=== PATIENT | male | born 1945 | race Caucasian/White ===

== ENCOUNTER 2018-12-10 10:35 | Observation (INO) | payer OTHER, MEDICARE ==
[~2018-12-10] VITALS: Ht 170.2 cm; Wt 72.0 kg
[~2018-12-10 10:35] MED LIST: ASPI-1071 PO; ATOR10TA87 PO; COL100C PO; DICL100G15 TOP; HYDR-3972 PO; LISI-604 PO; METF500T PO; METO25TA6 PO; PANT40TA4 PO; TEST75GE TOP; tamsulosin capsule PO
[2018-12-10 11:09] LABS: BASOPHILS # (AUTO) 0.1 X10'3 (0-0.2); BASOPHILS % (AUTO) 0.7 % (0-1); EOSINOPHILS # (AUTO) 0.3 X10'3 (0-0.9); EOSINOPHILS % (AUTO) 3.3 % (0-6); HEMATOCRIT 32.6 % (42.0-52.0); HEMOGLOBIN 10.8 g/dl (14.0-17.9); LYMPHOCYTES # (AUTO) 1.7 X10'3 (1.1-4.8); LYMPHOCYTES % (AUTO) 18.4 % (21-51); MEAN CORPUSCULAR HEMOGLOBIN 29.8 PG (27.0-31.0); MEAN CORPUSCULAR HGB CONC 33.2 g/dL (33.0-36.5); MEAN CORPUSCULAR VOLUME 89.7 FL (78-98); MEAN PLATELET VOLUME 7.5 FL (7.4-10.4); MONOCYTES # (AUTO) 0.5 X10'3 (0-0.9); MONOCYTES % (AUTO) 5.3 % (2-12); NEUTROPHILS # (AUTO) 6.6 X10'3 (1.8-7.7); NEUTROPHILS % (AUTO) 72.3 % (42-75); PLATELET COUNT 387 X10'3 (140-440); RED BLOOD COUNT 3.64 X10'6 (4.70-6.10); RED CELL DISTRIBUTION WIDTH 14.1 % (11.5-14.5); WHITE BLOOD COUNT 9.1 X10'3 (4.5-11.0)
[2018-12-10 11:20] LABS: PARTIAL THROMBOPLASTIN TIME 26 SECONDS (22-32)
[2018-12-10 11:22] LABS: ALANINE AMINOTRANSFERASE 28 U/L (12-78); ALBUMIN 2.9 G/DL (3.4-5.0); ALBUMIN/GLOBULIN RATIO 0.8 (1.1-1.5); ALKALINE PHOSPHATASE 57 IU/L (46-116); ANION GAP 10 (8-16); ASPARTATE AMINO TRANSFERASE 13 U/L (10-37); BILIRUBIN,TOTAL 0.5 MG/DL (0.1-1.0); BLOOD UREA NITROGEN 24 MG/DL (7-18); BUN/CREATININE RATIO 15.3 (5.4-32.0); CALCIUM 8.9 MG/DL (8.5-10.1); CHLORIDE 104 MMOL/L (99-107); CREATININE 1.57 MG/DL (0.60-1.10); GLUCOSE 161 MG/DL (70-104); POTASSIUM 4.3 MMOL/L (3.5-5.1); SODIUM 140 MMOL/L (135-145); TOTAL CARBON DIOXIDE 26.2 MMOL/L (24-32); TOTAL PROTEIN 6.5 G/DL (6.4-8.2); eGFR 44 ML/MIN
[2018-12-10] MEDS ORDERED: metFORMIN 500mg tablet PO ONE (11:55)
[2018-12-10] MEDS ORDERED: metFORMIN 850mg tablet PO ONE (12:20)
--- NOTE | 2018-12-10 12:36 | NUR ---
NOREEN CAMPBELL STATES PT MAY BE ADMITTED STILL CONSULTING WITH NETTIE HURTADO FOR PT TO EAT, ORDERED HEART HEALTHY DIET
[2018-12-10] MEDS ORDERED: UBID100C16 PO (12:46)
[2018-12-10] MEDS ORDERED: HYDR-4353 PO (12:51)
[2018-12-10] MEDS ORDERED: DOCU-20 PO (12:51)
[2018-12-10] MEDS ORDERED: METO25TA6 PO (12:51)
[2018-12-10] MEDS ORDERED: ASPI81TA52 PO (12:51)
[2018-12-10] MEDS ORDERED: FLO0.4C PO (12:51)
[2018-12-10] MEDS ORDERED: magnesium hydroxide 30ml (MOM) UD suspension PO PRN (12:55)
[2018-12-10] MEDS ORDERED: acetaminophen 325mg tablet PO PRN (12:55)
[2018-12-10] MEDS ORDERED: mag hydrox/Alum hydrox/simeth 30ml oral suspension PO PRN (12:55)
[2018-12-10] MEDS ORDERED: ondansetron/PF 4mg/2ml inj IV PRN (12:55)
[2018-12-10] MEDS ORDERED: METF750T46 PO (13:11)
[2018-12-10] MEDS ORDERED: HYDROcodone/acetaminophen 10/325mg tab PO PRN (14:00)
[2018-12-10] MEDS ORDERED: DICLOFENAC SODIUM 4 GM TOP SCH (14:00)
--- NOTE | 2018-12-10 14:00 | NUR ---
received report from TENA Marroquin. all questions answered.
--- NOTE | 2018-12-10 14:15 | NUR ---
pt arrived via gurney. ambulated to chair with a steady gait. pt attached to cardiac monitoring. vss. pt oriented to room and call light.
[2018-12-10] MEDS: normal saline 1000ml 1,000 ML IV SCH (14:39)
[2018-12-10 15:00] VITALS: BP 134/65
[2018-12-10] MEDS: metFORMIN 500mg tablet PO SCH (17:18)
--- NOTE | 2018-12-10 17:55 | NUR ---
[place] documentation: I have reviewed and agree with interventions, assessments performed and documented by Veronica MADSEN. [place] Medication Administration: For this medication-pass time frame, all medication were reviewed, dispensed, administered and documented per hospital policy by Veronica MADSEN.
[2018-12-10 18:00] VITALS: BP 111/66
--- NOTE | 2018-12-10 18:00 | NUR ---
Patient in room MED 308. I have received report from [facility] and had the opportunity to ask questions and assume patient care.
--- NOTE | 2018-12-10 18:14 | NUR ---
Problems reprioritized. Patient report given, questions answered & plan of care reviewed with Mik MADSEN.
[2018-12-10 20:00] VITALS: BP 111/66
[2018-12-10] MEDS ORDERED: TESTOSTERONE PUMP TOP SCH (20:00)
[2018-12-10] MEDS: TESTOSTERONE TP SCH (20:00)
[2018-12-10] MEDS: DICLOFENAC TP SCH (20:00)
[2018-12-10] MEDS ORDERED: tamsulosin 0.4mg capsule PO SCH (21:00)
[2018-12-10] MEDS ORDERED: METFORMIN HCL PO SCH (21:00)
[2018-12-10 22:00] VITALS: BP 105/57
[2018-12-10] MEDS: docusate sod 100mg capsule PO SCH (22:35)
--- NOTE | 2018-12-10 22:42 | NUR ---
PAGER ID: [phone] MESSAGE: [id number] changes in his ECG. Stat 12-lead in process, c/o CP but no Nitro ordered, BP currently 155/80. Please come to floor. Thank you. Addendum: 12/11/18 at 0040 by Babs Felton RN Per MD, changes are due to BBB. Stat trop ordered and Nitro to be given only if trop is elevated and chest pain is present. Also, repeat ECG when no chest pain is present. Trop was negative and patient denies chest pain. A repeat ECG shows no BBB or ST abnormalities.
[2018-12-10] MEDS: heparin, porcine 5000 units/ml vial SQ SCH (22:43)
[2018-12-11] MEDS: metoprolol tartrate 12.5mg (1/2 tablet) PO SCH ×2 (00:42→07:59)
[2018-12-11] MEDS: normal saline 1000ml 1,000 ML IV SCH ×2 (00:43→08:54)
[2018-12-11 02:00] VITALS: BP 134/74
[2018-12-11] MEDS: DICLOFENAC TP SCH ×2 (02:00→08:00)
[2018-12-11 05:30] LABS: ALBUMIN 2.7 G/DL (3.4-5.0); ANION GAP 9 (8-16); BLOOD UREA NITROGEN 23 MG/DL (7-18); BUN/CREATININE RATIO 17.6 (5.4-32.0); CALCIUM 8.5 MG/DL (8.5-10.1); CHLORIDE 105 MMOL/L (99-107); CREATININE 1.31 MG/DL (0.60-1.10); GLUCOSE 128 MG/DL (70-104); POTASSIUM 4.1 MMOL/L (3.5-5.1); SODIUM 139 MMOL/L (135-145); TOTAL CARBON DIOXIDE 24.8 MMOL/L (24-32); eGFR 54 ML/MIN
[2018-12-11 05:40] LABS: BASOPHILS # (AUTO) 0.1 X10'3 (0-0.2); BASOPHILS % (AUTO) 0.8 % (0-1); EOSINOPHILS # (AUTO) 0.3 X10'3 (0-0.9); EOSINOPHILS % (AUTO) 3.2 % (0-6); HEMATOCRIT 28.2 % (42.0-52.0); HEMOGLOBIN 9.6 g/dl (14.0-17.9); LYMPHOCYTES # (AUTO) 1.9 X10'3 (1.1-4.8); LYMPHOCYTES % (AUTO) 19.7 % (21-51); MEAN CORPUSCULAR HEMOGLOBIN 30.6 PG (27.0-31.0); MEAN PLATELET VOLUME 7.7 FL (7.4-10.4); MONOCYTES # (AUTO) 0.5 X10'3 (0-0.9); NEUTROPHILS % (AUTO) 71.3 % (42-75); PLATELET COUNT 349 X10'3 (140-440); RED BLOOD COUNT 3.14 X10'6 (4.70-6.10); RED CELL DISTRIBUTION WIDTH 13.8 % (11.5-14.5); WHITE BLOOD COUNT 9.8 X10'3 (4.5-11.0)
[2018-12-11 06:00] VITALS: BP 114/54
--- NOTE | 2018-12-11 06:44 | NUR ---
Report given to Capri MADSEN.
[2018-12-11] MEDS ORDERED: atorvastatin 10mg tablet PO SCH (08:00)
[2018-12-11] MEDS: metFORMIN 500mg tablet PO SCH (08:00)
[2018-12-11] MEDS ORDERED: lisinopril 5mg tablet PO SCH (08:00)
[2018-12-11] MEDS ORDERED: aspirin 81mg tablet.DR PO SCH (08:00)
[2018-12-11] MEDS ORDERED: pantoprazole 40mg Tablet.DR PO SCH (08:00)
[2018-12-11] MEDS ORDERED: nitroGLYCERIN 0.4mg/hour patch TD SCH (08:00)
[2018-12-11] MEDS: docusate sod 100mg capsule PO SCH (08:00)
[2018-12-11] MEDS: TESTOSTERONE TP SCH (08:00)
[2018-12-11] MEDS ORDERED: COENZYME Q10 300 MG PO SCH (08:00)
[2018-12-11] MEDS ORDERED: non-formulary drug (Ubidecarenone (Coq-10) 300 MG) PO SCH (08:00)
[2018-12-11] MEDS: heparin, porcine 5000 units/ml vial SQ SCH (08:01)
[2018-12-11 11:00] VITALS: BP 126/66
--- NOTE | 2018-12-11 11:30 | NUR ---
PROVIDED PATIENT WITH DISCHARGE INSTRUCTIONS WELL PACKET. PATIENT IS AWARE OF FOLLOW UP APPOINTMENTS NEXT WEEK. IV REMOVED, CATHETER INTACT, MINIMAL BLEEDING CLEAN GAUZE APPLIED AND SECURED WITH TAPE. PATIENT GOT HIMSELF DRESSED, AND HIS ARRIVED TO TAKE HIM HOME VIA PRIVATE VEHICLE. PATIENT AND FAMILY DENIES ANY QUESTIONS OR CONCERNS.
== END 2018-12-11 12:00 | disposition home or self-care (01) ==
LOC: ER 10:36 → MED 3N 14:15
PROVIDERS: ADMIT Family Medicine; ATTEND Family Medicine
DX: R07.9 Chest pain, unspecified (principal); R55 Syncope and collapse; I12.9 Hypertensive chronic kidney disease with stage 1 through stage 4 chronic kidney disease, or unspecified chronic kidney disease; E11.22 Type 2 diabetes mellitus with diabetic chronic kidney disease; N18.9 Chronic kidney disease, unspecified; I25.119 Atherosclerotic heart disease of native coronary artery with unspecified angina pectoris; E78.5 Hyperlipidemia, unspecified; Z95.1 Presence of aortocoronary bypass graft; Z79.82 Long term (current) use of aspirin
CPT/HCPCS: 36415; 71045; 80048; 80053; 84484; 85025; 85610; 85730; 87081; 93005; 96360; 96361; 96372; 99284; G0378; J1644; J7030

== ENCOUNTER 2019-06-24 09:25 | Day surgery (SDC) | payer BC, MEDICARE ==
[~2019-06-24 09:25] MED LIST changes: +AMOX-422 PO; -ASPI-1071 PO; +ASPI81TA52 PO; -COL100C PO; -DICL100G15 TOP; -HYDR-3972 PO; +HYDR-4353 PO; -METF500T PO; +METF750T46 PO; +METO-395 PO; -METO25TA6 PO; -PANT40TA4 PO; +UBID100C16 PO; -tamsulosin capsule PO
[2019-06-24] MEDS ORDERED: LIDOcaine 2% 5ml jelly ONE ×2 (10:01)
[2019-06-24] MEDS ORDERED: LIDOcaine 1%/PF 5ML 10 MG/ML VIAL ONE (10:31)
== END 2019-06-24 12:03 | disposition home or self-care (01) ==
LOC: WOUND CARE 09:25
PROVIDERS: ATTEND Surgery
DX: E11.621 Type 2 diabetes mellitus with foot ulcer (principal); L97.512 Non-pressure chronic ulcer of other part of right foot with fat layer exposed; L97.522 Non-pressure chronic ulcer of other part of left foot with fat layer exposed; E11.65 Type 2 diabetes mellitus with hyperglycemia; E11.40 Type 2 diabetes mellitus with diabetic neuropathy, unspecified; E11.22 Type 2 diabetes mellitus with diabetic chronic kidney disease; I13.0 Hypertensive heart and chronic kidney disease with heart failure and stage 1 through stage 4 chronic kidney disease, or unspecified chronic kidney disease; I50.22 Chronic systolic (congestive) heart failure; N18.3 Chronic kidney disease, stage 3 (moderate); I25.2 Old myocardial infarction; I25.10 Atherosclerotic heart disease of native coronary artery without angina pectoris; K21.9 Gastro-esophageal reflux disease without esophagitis; Z85.828 Personal history of other malignant neoplasm of skin; Z79.82 Long term (current) use of aspirin; Z79.84 Long term (current) use of oral hypoglycemic drugs; Z79.899 Other long term (current) drug therapy; Z95.1 Presence of aortocoronary bypass graft; Z96.653 Presence of artificial knee joint, bilateral
CPT/HCPCS: 10060; 36416; 82948; 97597; 97605

== ENCOUNTER 2019-07-01 08:00 | Day surgery (SDC) | payer BC, MEDICARE ==
[2019-07-01] MEDS ORDERED: LIDOcaine 2% 5ml jelly ONE (09:16)
== END 2019-07-01 10:28 | disposition home or self-care (01) ==
LOC: WOUND CARE 08:00
PROVIDERS: ATTEND Surgery
DX: E11.621 Type 2 diabetes mellitus with foot ulcer (principal); L97.512 Non-pressure chronic ulcer of other part of right foot with fat layer exposed; L97.522 Non-pressure chronic ulcer of other part of left foot with fat layer exposed; E11.65 Type 2 diabetes mellitus with hyperglycemia; E11.40 Type 2 diabetes mellitus with diabetic neuropathy, unspecified; E11.22 Type 2 diabetes mellitus with diabetic chronic kidney disease; I13.0 Hypertensive heart and chronic kidney disease with heart failure and stage 1 through stage 4 chronic kidney disease, or unspecified chronic kidney disease; I50.22 Chronic systolic (congestive) heart failure; N18.3 Chronic kidney disease, stage 3 (moderate); I25.2 Old myocardial infarction; I25.10 Atherosclerotic heart disease of native coronary artery without angina pectoris; K21.9 Gastro-esophageal reflux disease without esophagitis; Z85.828 Personal history of other malignant neoplasm of skin; Z79.82 Long term (current) use of aspirin; Z79.84 Long term (current) use of oral hypoglycemic drugs; Z79.899 Other long term (current) drug therapy; Z95.1 Presence of aortocoronary bypass graft; Z96.653 Presence of artificial knee joint, bilateral
CPT/HCPCS: 36416; 82948

== ENCOUNTER 2019-07-06 08:57 | Day surgery (SDC) | payer BC, MEDICARE ==
[2019-07-06] MEDS ORDERED: LIDOcaine 2% 5ml jelly ONE (09:50)
== END 2019-07-06 10:57 | disposition home or self-care (01) ==
LOC: WOUND CARE 08:57
PROVIDERS: ATTEND Surgery
DX: E11.621 Type 2 diabetes mellitus with foot ulcer (principal); L97.512 Non-pressure chronic ulcer of other part of right foot with fat layer exposed; L97.522 Non-pressure chronic ulcer of other part of left foot with fat layer exposed; T63.301D Toxic effect of unspecified spider venom, accidental (unintentional), subsequent encounter; E11.65 Type 2 diabetes mellitus with hyperglycemia; E11.40 Type 2 diabetes mellitus with diabetic neuropathy, unspecified; E11.22 Type 2 diabetes mellitus with diabetic chronic kidney disease; I13.0 Hypertensive heart and chronic kidney disease with heart failure and stage 1 through stage 4 chronic kidney disease, or unspecified chronic kidney disease; I50.22 Chronic systolic (congestive) heart failure; N18.3 Chronic kidney disease, stage 3 (moderate); I25.2 Old myocardial infarction; I25.10 Atherosclerotic heart disease of native coronary artery without angina pectoris; K21.9 Gastro-esophageal reflux disease without esophagitis; Z85.828 Personal history of other malignant neoplasm of skin; Z79.82 Long term (current) use of aspirin; Z79.84 Long term (current) use of oral hypoglycemic drugs; Z79.899 Other long term (current) drug therapy; Z95.1 Presence of aortocoronary bypass graft; Z96.653 Presence of artificial knee joint, bilateral
CPT/HCPCS: 11042; 36416; 82948; 97597

== ENCOUNTER 2019-07-13 09:00 | Day surgery (SDC) | payer BC, MEDICARE ==
[2019-07-13] MEDS ORDERED: LIDOcaine 2% 5ml jelly ONE (09:33)
== END 2019-07-13 10:30 | disposition home or self-care (01) ==
LOC: WOUND CARE 09:00
PROVIDERS: ATTEND Surgery
DX: E11.621 Type 2 diabetes mellitus with foot ulcer (principal); L97.512 Non-pressure chronic ulcer of other part of right foot with fat layer exposed; L97.522 Non-pressure chronic ulcer of other part of left foot with fat layer exposed; T63.301D Toxic effect of unspecified spider venom, accidental (unintentional), subsequent encounter; E11.65 Type 2 diabetes mellitus with hyperglycemia; E11.40 Type 2 diabetes mellitus with diabetic neuropathy, unspecified; E11.22 Type 2 diabetes mellitus with diabetic chronic kidney disease; I13.0 Hypertensive heart and chronic kidney disease with heart failure and stage 1 through stage 4 chronic kidney disease, or unspecified chronic kidney disease; I50.22 Chronic systolic (congestive) heart failure; N18.3 Chronic kidney disease, stage 3 (moderate); I25.2 Old myocardial infarction; I25.10 Atherosclerotic heart disease of native coronary artery without angina pectoris; K21.9 Gastro-esophageal reflux disease without esophagitis; Z85.828 Personal history of other malignant neoplasm of skin; Z79.82 Long term (current) use of aspirin; Z79.84 Long term (current) use of oral hypoglycemic drugs; Z79.899 Other long term (current) drug therapy; Z95.1 Presence of aortocoronary bypass graft; Z96.653 Presence of artificial knee joint, bilateral
CPT/HCPCS: 36416; 97597

== ENCOUNTER 2019-07-20 09:03 | Day surgery (SDC) | payer BC ==
[2019-07-20] MEDS ORDERED: LIDOcaine 2% 5ml jelly ONE (09:32)
== END 2019-07-20 10:48 | disposition home or self-care (01) ==
LOC: WOUND CARE 09:03
PROVIDERS: ATTEND Surgery
DX: E11.621 Type 2 diabetes mellitus with foot ulcer (principal); L97.512 Non-pressure chronic ulcer of other part of right foot with fat layer exposed; L97.522 Non-pressure chronic ulcer of other part of left foot with fat layer exposed; T63.301D Toxic effect of unspecified spider venom, accidental (unintentional), subsequent encounter; E11.65 Type 2 diabetes mellitus with hyperglycemia; E11.40 Type 2 diabetes mellitus with diabetic neuropathy, unspecified; E11.22 Type 2 diabetes mellitus with diabetic chronic kidney disease; I13.0 Hypertensive heart and chronic kidney disease with heart failure and stage 1 through stage 4 chronic kidney disease, or unspecified chronic kidney disease; I50.22 Chronic systolic (congestive) heart failure; N18.3 Chronic kidney disease, stage 3 (moderate); I25.2 Old myocardial infarction; I25.10 Atherosclerotic heart disease of native coronary artery without angina pectoris; K21.9 Gastro-esophageal reflux disease without esophagitis; Z85.828 Personal history of other malignant neoplasm of skin; Z79.82 Long term (current) use of aspirin; Z79.84 Long term (current) use of oral hypoglycemic drugs; Z79.899 Other long term (current) drug therapy; Z95.1 Presence of aortocoronary bypass graft; Z96.653 Presence of artificial knee joint, bilateral
CPT/HCPCS: 11042; 82948; 97597; A6209; A4663; A6021; A6154; A6446

== ENCOUNTER 2019-07-27 08:55 | Day surgery (SDC) | payer BC ==
[~2019-07-27 08:55] MED LIST changes: -AMOX-422 PO; -HYDR-4353 PO
[2019-07-27] MEDS ORDERED: LIDOcaine 2% 5ml jelly ONE (09:36)
== END 2019-07-27 10:12 | disposition home or self-care (01) ==
LOC: WOUND CARE 08:55
PROVIDERS: ATTEND Surgery
DX: E11.621 Type 2 diabetes mellitus with foot ulcer (principal); L97.522 Non-pressure chronic ulcer of other part of left foot with fat layer exposed; L97.512 Non-pressure chronic ulcer of other part of right foot with fat layer exposed; T63.301D Toxic effect of unspecified spider venom, accidental (unintentional), subsequent encounter; E11.65 Type 2 diabetes mellitus with hyperglycemia; E11.40 Type 2 diabetes mellitus with diabetic neuropathy, unspecified; E11.22 Type 2 diabetes mellitus with diabetic chronic kidney disease; I13.0 Hypertensive heart and chronic kidney disease with heart failure and stage 1 through stage 4 chronic kidney disease, or unspecified chronic kidney disease; I50.22 Chronic systolic (congestive) heart failure; N18.3 Chronic kidney disease, stage 3 (moderate); I25.2 Old myocardial infarction; I25.10 Atherosclerotic heart disease of native coronary artery without angina pectoris; K21.9 Gastro-esophageal reflux disease without esophagitis; Z85.828 Personal history of other malignant neoplasm of skin; Z79.82 Long term (current) use of aspirin; Z79.84 Long term (current) use of oral hypoglycemic drugs; Z79.899 Other long term (current) drug therapy; Z95.1 Presence of aortocoronary bypass graft; Z96.653 Presence of artificial knee joint, bilateral
CPT/HCPCS: 11042; 97597; A4663; A6021; A6154; A6446

== ENCOUNTER 2019-08-03 08:52 | Day surgery (SDC) | payer BC ==
[2019-08-03] MEDS ORDERED: LIDOcaine/PRILOcaine 5gm cream TP ONE (09:38)
== END 2019-08-03 10:47 | disposition home or self-care (01) ==
LOC: WOUND CARE 08:52
PROVIDERS: ATTEND Surgery
DX: E11.621 Type 2 diabetes mellitus with foot ulcer (principal); L97.522 Non-pressure chronic ulcer of other part of left foot with fat layer exposed; L97.512 Non-pressure chronic ulcer of other part of right foot with fat layer exposed; T63.301D Toxic effect of unspecified spider venom, accidental (unintentional), subsequent encounter; E11.65 Type 2 diabetes mellitus with hyperglycemia; E11.40 Type 2 diabetes mellitus with diabetic neuropathy, unspecified; E11.22 Type 2 diabetes mellitus with diabetic chronic kidney disease; I13.0 Hypertensive heart and chronic kidney disease with heart failure and stage 1 through stage 4 chronic kidney disease, or unspecified chronic kidney disease; I50.22 Chronic systolic (congestive) heart failure; N18.3 Chronic kidney disease, stage 3 (moderate); I25.2 Old myocardial infarction; I25.10 Atherosclerotic heart disease of native coronary artery without angina pectoris; K21.9 Gastro-esophageal reflux disease without esophagitis; Z85.828 Personal history of other malignant neoplasm of skin; Z79.82 Long term (current) use of aspirin; Z79.84 Long term (current) use of oral hypoglycemic drugs; Z79.899 Other long term (current) drug therapy; Z95.1 Presence of aortocoronary bypass graft; Z96.653 Presence of artificial knee joint, bilateral
CPT/HCPCS: 36416; 82948; 97597; A4663; A6021; A6154; A6446

== ENCOUNTER 2019-08-11 08:55 | Outpatient (CLI) | payer BC | END 2019-08-11 10:10 | disposition home or self-care (01) | LOC: WOUND CARE 08:55 → EDSTATUS 09:00 → WOUND CARE 10:10 | PROVIDERS: ATTEND Surgery | DX: E11.621 Type 2 diabetes mellitus with foot ulcer (principal); L97.522 Non-pressure chronic ulcer of other part of left foot with fat layer exposed; L97.512 Non-pressure chronic ulcer of other part of right foot with fat layer exposed; T63.301D Toxic effect of unspecified spider venom, accidental (unintentional), subsequent encounter; E11.65 Type 2 diabetes mellitus with hyperglycemia; E11.40 Type 2 diabetes mellitus with diabetic neuropathy, unspecified; E11.22 Type 2 diabetes mellitus with diabetic chronic kidney disease; I13.0 Hypertensive heart and chronic kidney disease with heart failure and stage 1 through stage 4 chronic kidney disease, or unspecified chronic kidney disease; I50.22 Chronic systolic (congestive) heart failure; N18.3 Chronic kidney disease, stage 3 (moderate); I25.2 Old myocardial infarction; I25.10 Atherosclerotic heart disease of native coronary artery without angina pectoris; K21.9 Gastro-esophageal reflux disease without esophagitis; Z85.828 Personal history of other malignant neoplasm of skin; Z79.82 Long term (current) use of aspirin; Z79.84 Long term (current) use of oral hypoglycemic drugs; Z79.899 Other long term (current) drug therapy; Z95.1 Presence of aortocoronary bypass graft; Z96.653 Presence of artificial knee joint, bilateral | CPT/HCPCS: 36416; 82948; G0463 ==

== ENCOUNTER 2020-05-21 12:05 | Emergency (ER) | payer BC ==
[~2020-05-21] VITALS: Ht 172.7 cm; Wt 70.0 kg
[~2020-05-21 12:05] MED LIST changes: -LISI-604 PO; +LISI-790 PO
[2020-05-21 12:08] VITALS: BP 147/81
== END 2020-05-21 12:51 | disposition home or self-care (01) ==
LOC: ER 12:06
DX: J06.9 Acute upper respiratory infection, unspecified (principal); Z20.828 Contact with and (suspected) exposure to other viral communicable diseases; I25.10 Atherosclerotic heart disease of native coronary artery without angina pectoris; Z91.018 Allergy to other foods; Z79.899 Other long term (current) drug therapy; Z79.82 Long term (current) use of aspirin
CPT/HCPCS: 36415; 87635; 99283

== ENCOUNTER 2021-10-12 04:06 | Emergency (ER) | payer BC ==
[~2021-10-12] VITALS: Ht 177.8 cm; Wt 75.0 kg
[~2021-10-12 04:06] MED LIST changes: -LISI-790 PO; +LISI5TAB22 PO
--- NOTE | 2021-10-12 05:03 | NUR ---
[facility]irby apple in [facility] - 10/12/21 at 0504 by [email or web address] 3RD CALL PT NOT IN LOBBY
[2021-10-12 05:52] LABS: BASOPHILS % (AUTO) 0.4 % (0-1); EOSINOPHILS # (AUTO) 0.2 X10'3 (0-0.9); EOSINOPHILS % (AUTO) 2.1 % (0-6); HEMATOCRIT 37.5 % (42.0-52.0); HEMOGLOBIN 12.7 g/dl (14.0-17.9); LYMPHOCYTES # (AUTO) 1.3 X10'3 (1.1-4.8); LYMPHOCYTES % (AUTO) 18.7 % (21-51); MEAN CORPUSCULAR HGB CONC 33.8 g/dL (33.0-36.5); MEAN CORPUSCULAR VOLUME 88.7 FL (78-98); MEAN PLATELET VOLUME 7.4 FL (7.4-10.4); MONOCYTES # (AUTO) 0.4 X10'3 (0-0.9); MONOCYTES % (AUTO) 6.1 % (2-12); NEUTROPHILS # (AUTO) 5.2 X10'3 (1.8-7.7); NEUTROPHILS % (AUTO) 72.7 % (42-75); PLATELET COUNT 227 X10'3 (140-440); RED BLOOD COUNT 4.22 X10'6 (4.70-6.10); RED CELL DISTRIBUTION WIDTH 14.1 % (11.5-14.5); WHITE BLOOD COUNT 7.2 X10'3 (4.5-11.0)
[2021-10-12 06:21] LABS: ALANINE AMINOTRANSFERASE 20 U/L (12-78); ALBUMIN 3.7 G/DL (3.4-5.0); ALBUMIN/GLOBULIN RATIO 1.1 (1.1-1.5); ALKALINE PHOSPHATASE 51 IU/L (46-116); ANION GAP 9 (8-16); ASPARTATE AMINO TRANSFERASE 17 U/L (10-37); BILIRUBIN,TOTAL 0.4 MG/DL (0.1-1.0); BLOOD UREA NITROGEN 19 MG/DL (7-18); BUN/CREATININE RATIO 13.7 (5.4-32.0); CALCIUM 8.8 MG/DL (8.5-10.1); CHLORIDE 105 MMOL/L (99-107); CREATININE 1.39 MG/DL (0.60-1.10); GLUCOSE 117 MG/DL (70-104); POTASSIUM 4.3 MMOL/L (3.5-5.1); SODIUM 139 MMOL/L (135-145); TOTAL CARBON DIOXIDE 25.3 MMOL/L (24-32); eGFR 50 ML/MIN
[2021-10-12 07:34] VITALS: BP 154/72
--- NOTE | 2021-10-12 07:42 | NUR ---
pt ambulated with steady gait to restroom. denies pain. able to bear full weight on bilat LE. updated on poc, awaiting lab and us results.
[2021-10-12] MEDS ORDERED: CEPH-585 PO (08:04)
== END 2021-10-12 08:15 | disposition home or self-care (01) ==
LOC: ER 04:06
DX: M79.672 Pain in left foot (principal); I25.10 Atherosclerotic heart disease of native coronary artery without angina pectoris; E78.00 Pure hypercholesterolemia, unspecified; I10 Essential (primary) hypertension; E11.9 Type 2 diabetes mellitus without complications; Z98.890 Other specified postprocedural states; Z88.8 Allergy status to other drugs, medicaments and biological substances; Z79.82 Long term (current) use of aspirin; Z79.2 Long term (current) use of antibiotics; Z79.899 Other long term (current) drug therapy
CPT/HCPCS: 36415; 80053; 83605; 84145; 84550; 85025; 87040; 93971; 99284

== ENCOUNTER 2023-07-23 16:04 | Emergency (ER) | payer BC ==
[~2023-07-23] VITALS: Ht 177.8 cm; Wt 78.6 kg
[2023-07-23 16:13] VITALS: TEMP 98.2
[2023-07-23 17:25] LABS: BASOPHILS % (AUTO) 0.1 % (0-1); EOSINOPHILS # (AUTO) 0.1 X10'3 (0-0.9); HEMATOCRIT 39.1 % (42.0-52.0); HEMOGLOBIN 13.1 g/dl (14.0-17.9); LYMPHOCYTES # (AUTO) 1.3 X10'3 (1.1-4.8); LYMPHOCYTES % (AUTO) 12.2 % (21-51); MEAN CORPUSCULAR HEMOGLOBIN 30.2 PG (27.0-31.0); MEAN CORPUSCULAR HGB CONC 33.5 g/dL (33.0-36.5); MEAN CORPUSCULAR VOLUME 90.1 FL (78-98); MEAN PLATELET VOLUME 7.8 FL (7.4-10.4); MONOCYTES # (AUTO) 1.1 X10'3 (0-0.9); NEUTROPHILS # (AUTO) 7.8 X10'3 (1.8-7.7); NEUTROPHILS % (AUTO) 75.7 % (42-75); PLATELET COUNT 177 X10'3 (140-440); RED BLOOD COUNT 4.34 X10'6 (4.70-6.10); RED CELL DISTRIBUTION WIDTH 13.9 % (11.5-14.5); WHITE BLOOD COUNT 10.3 X10'3 (4.5-11.0)
[2023-07-23 17:37] LABS: PROTHROMBIN TIME 10.9 SECONDS (9.0-12.0)
[2023-07-23 17:57] LABS: APTT 29 SECONDS (22-32)
[2023-07-23 18:04] LABS: ALANINE AMINOTRANSFERASE 22 U/L (12-78); ALBUMIN 3.5 G/DL (3.4-5.0); ALKALINE PHOSPHATASE 46 IU/L (46-116); ANION GAP 9 (8-16); ASPARTATE AMINO TRANSFERASE 10 U/L (10-37); BILIRUBIN,TOTAL 0.8 MG/DL (0.1-1.0); BLOOD UREA NITROGEN 21 MG/DL (7-18); BUN/CREATININE RATIO 12.4 (10.0-20.0); CALCIUM 9.3 MG/DL (8.5-10.1); CHLORIDE 103 MMOL/L (99-107); GLUCOSE 95 MG/DL (70-104); POTASSIUM 4.6 MMOL/L (3.5-5.1); SODIUM 140 MMOL/L (135-145); TOTAL CARBON DIOXIDE 28.2 MMOL/L (24-32); TOTAL PROTEIN 6.9 G/DL (6.4-8.2); eCRCL 38 ML/MIN; eGFR 39 ML/MIN
[2023-07-23] MEDS: CefTRIAXone 1000mg IM Kit (w/lidocaine diluent) IM ONE (20:05)
[2023-07-23] MEDS: HYDROcodone/acetaminophen 10/325mg tab PO ONE (20:05)
[2023-07-23] MEDS ORDERED: ONDA4TAB12 PO (20:14)
[2023-07-23] MEDS ORDERED: HYDR-3973 PO (20:14)
[2023-07-23] MEDS ORDERED: CLIN-143 PO (20:14)
[2023-07-23 20:24] VITALS: BP 141/78; PULSE 72; RESP 16; O2SAT 98
== END 2023-07-23 20:25 | disposition home or self-care (01) ==
LOC: ER 16:04
DX: L03.116 Cellulitis of left lower limb (principal); I50.9 Heart failure, unspecified; E78.00 Pure hypercholesterolemia, unspecified; I10 Essential (primary) hypertension; E11.9 Type 2 diabetes mellitus without complications; Z91.018 Allergy to other foods
CPT/HCPCS: 36415; 80053; 85025; 85610; 85730; 93971; 96372; 99285; J0696

== ENCOUNTER 2023-10-23 11:43 | Emergency (ER) | payer BC ==
[~2023-10-23] VITALS: Ht 177.8 cm; Wt 77.4 kg
[~2023-10-23 11:43] MED LIST changes: +ONDA4TAB12 PO
[2023-10-23] MEDS ORDERED: ATOR40TA72 PO (11:51)
[2023-10-23] MEDS ORDERED: AMOX1TAB15 PO (11:51)
[2023-10-23] MEDS ORDERED: METF625T PO (11:51)
[2023-10-23] MEDS ORDERED: SACU1TAB PO (11:51)
[2023-10-23] MEDS: CefTRIAXone 2gm/D5W 50ml BAG 50 ML IV ONE (15:38)
[2023-10-23 15:48] LABS: BASOPHILS % (AUTO) 0.3 % (0-1); EOSINOPHILS # (AUTO) 0.1 X10'3 (0-0.9); HEMATOCRIT 39.3 % (42.0-52.0); HEMOGLOBIN 13.1 g/dl (14.0-17.9); LYMPHOCYTES # (AUTO) 1.2 X10'3 (1.1-4.8); LYMPHOCYTES % (AUTO) 16.3 % (21-51); MEAN CORPUSCULAR HEMOGLOBIN 30.4 PG (27.0-31.0); MEAN CORPUSCULAR HGB CONC 33.5 g/dL (33.0-36.5); MEAN CORPUSCULAR VOLUME 90.8 FL (78-98); MEAN PLATELET VOLUME 7.7 FL (7.4-10.4); MONOCYTES # (AUTO) 0.5 X10'3 (0-0.9); MONOCYTES % (AUTO) 7.6 % (2-12); NEUTROPHILS # (AUTO) 5.3 X10'3 (1.8-7.7); NEUTROPHILS % (AUTO) 73.8 % (42-75); PLATELET COUNT 213 X10'3 (140-440); RED BLOOD COUNT 4.32 X10'6 (4.70-6.10); WHITE BLOOD COUNT 7.2 X10'3 (4.5-11.0)
[2023-10-23 15:55] LABS: ALBUMIN 3.1 G/DL (3.4-5.0); ANION GAP 8 (8-16); BLOOD UREA NITROGEN 26 MG/DL (7-18); BUN/CREATININE RATIO 14.7 (10.0-20.0); CHLORIDE 100 MMOL/L (99-107); CREATININE 1.77 MG/DL (0.60-1.10); GLUCOSE 149 MG/DL (70-104); MAGNESIUM 2.4 MG/DL (1.5-2.4); POTASSIUM 4.3 MMOL/L (3.5-5.1); SODIUM 134 MMOL/L (135-145); TOTAL CARBON DIOXIDE 25.7 MMOL/L (24-32); URIC ACID 6.8 MG/DL (3.5-7.2); eCRCL 36 ML/MIN; eGFR 37 ML/MIN
[2023-10-23] MEDS ORDERED: CEPH-585 PO (17:37)
[2023-10-23 18:04] VITALS: BP 124/85; PULSE 78; RESP 14; TEMP 98.6; O2SAT 98
== END 2023-10-23 18:05 | disposition home or self-care (01) ==
LOC: ER 11:44
DX: L03.116 Cellulitis of left lower limb (principal); I25.10 Atherosclerotic heart disease of native coronary artery without angina pectoris; E78.00 Pure hypercholesterolemia, unspecified; I10 Essential (primary) hypertension; E11.9 Type 2 diabetes mellitus without complications; Z95.1 Presence of aortocoronary bypass graft; Z85.038 Personal history of other malignant neoplasm of large intestine; Z91.018 Allergy to other foods; Z79.82 Long term (current) use of aspirin; Z79.84 Long term (current) use of oral hypoglycemic drugs; Z79.899 Other long term (current) drug therapy
CPT/HCPCS: 36415; 71045; 80048; 83605; 83735; 84145; 84550; 85025; 87040; 93005; 93971; 96365; 99285; J0696